=== PATIENT | female | born 1955 | race Two or more races ===

== ENCOUNTER → 2020-01-12 | Outpatient (CLI) | payer OTHER | END | disposition home or self-care (01) | LOC: OFIC 805 10:30 | PROVIDERS: ATTEND Otolaryngology | DX: R09.82 Postnasal drip (principal); R09.81 Nasal congestion; J32.8 Other chronic sinusitis ==

== ENCOUNTER → 2020-03-21 | Outpatient (CLI) | payer OTHER | END | disposition home or self-care (01) | LOC: OFIC 805 03-08 09:15 | PROVIDERS: ATTEND Otolaryngology | DX: R09.82 Postnasal drip (principal); J32.8 Other chronic sinusitis; J30.89 Other allergic rhinitis ==